=== PATIENT | female | born 1970 | race Caucasian/White ===

== ENCOUNTER 2016-10-15 17:52 | Emergency (ER) | payer MEDICAID ==
[~2016-10-15] VITALS: Wt 75.0 kg
[2016-10-15] MEDS ORDERED: HYDROCODONE/APAP (5/325) TAB PO ONE (18:30)
--- NOTE | 2016-10-15 18:32 | ERA ---
ER Documentation Chief Complaint Date/Time DATE: 10/15/16 TIME: 18:28 Chief Complaint l. knee pain, denies trauma HPI 36-year-old female presented with a chief complaint of 2 months of left knee and ankle pain that is described as burning and worse with movement. Patient has no other symptoms and describes no other associated manifestations. ROS All systems reviewed and are negative except as per history of present illness. Medications Home Meds Active Scripts Ibuprofen* (Motrin*) 600 Mg Tab, 600 MG PO Q6, #30 TAB Prov:NIC RUIZ PA-C 10/15/16 Hydrocodone/Acetaminophen ([place] 5-325 Tablet) 1 Each Tablet, 1 TAB PO Q6H Y for PAIN, #7 TAB Prov:NIC RUIZ PA-C 10/15/16 Discontinued Scripts Ibuprofen* (Motrin*) 600 Mg Tab, 600 MG PO Q6H Y for PAIN AND OR ELEVATED TEMP, #30 TAB Prov:FRANCIS MAURICIO PA-C 10/15/16 Allergies Allergies: Coded Allergies: No Known Drug Allergies (Verified Allergy, Unknown, 12/02/15) PMhx/Soc History of Surgery: No Anesthesia Reaction: No Hx Neurological Disorder: No Hx Respiratory Disorders: No Hx Cardiac Disorders: No Hx Psychiatric Problems: No Hx Miscellaneous Medical Probl: No Hx Alcohol Use: No Hx Substance Use: No Hx Tobacco Use: No Physical Exam Vitals Vital Signs Date Time Temp Pulse Resp B/P Pulse Ox O2 Delivery O2 Flow Rate FiO2 10/15/16 21:18 98.6 80 20 100 Room Air 10/15/16 18:07 98.4 68 20 119/67 98 Physical Exam Const: Overweight 46-year-old female in no acute distress. Head: Atraumatic Eyes: Normal Conjunctiva ENT: Normal External Ears, Nose and Mouth. Neck: Full range of motion..~ No meningismus. Resp: Clear to auscultation bilaterally Cardio: Regular rate and rhythm, no murmurs Abd: Soft, non tender, non distended. Normal bowel sounds Skin: No petechiae or rashes. No bruising seen in the affected extremity. Back: No midline or flank tenderness Ext: Limited range of motion of the left knee and left ankle secondary to pain. Minimal tenderness to palpation. No cyanosis, or edema Neur: Awake and alert Psych: Normal Mood and Affect Results 24 hrs Current Medications Medications (Trade) Dose Ordered Sig/Waldo Route PRN Reason Start Time Stop Time Status Last Admin Dose Admin Acetaminophen/ Hydrocodone Bitart ([place] (5/325)) 1 tab ONCE ONCE PO 10/15/16 18:30 10/15/16 18:31 DC 10/15/16 19:20 Procedures/MDM This is a 46-year-old otherwise healthy female presenting with a chief complaint of left knee and left ankle pain as described in the history and physical examination. Patient was given [place] in the ED with moderate symptomatic relief. Radiographs of the affected areas were taken and read by the radiologist given the following impression: No acute fracture of the ankle. No acute fracture of the knee. At this time I very little suspicion for neurovascular involvement. There are no breaks in the skin level suspicion for infectious involvement. Patient will be discharged with pain control instructions. Patient has verbally acknowledged that she understands and has agreed to the plan of management. Handout of quality assurance specialist have been added to her. Patient's vitals are stable her current condition is appropriate for discharge. Patient will be discharged with discharge instructions and return precautions. Departure Diagnosis: Primary Impression: Knee injury Qualified Code: S89.92XA - Knee injury, left, initial encounter Additional Impression: Knee pain Qualified Code: M25.562 - Acute pain of left knee Condition: Stable Additional Instructions: Follow up with your PCP within the next 1-3 days for a more thorough evaluation and a possible referral to a specialist. If you are unable to see her PCP use the handout given to with the referral list of quality assurance specialist in the area. Return the the emergency department immediately if symptoms worsen or change. If you have any questions regarding medications, ask your pharmacist or us before you leave. If any adverse reactions occur while taking your medications, discontinue the treatment and return to the emergency department immediately. Take your medications as directed, and complete the entire course of treatment. FRANCIS MAURICIO PA-C Oct 15, 2016 18:32
--- NOTE | 2016-10-15 19:28 | RADRPT ---
PROCEDURE: Left knee x-ray CLINICAL INDICATION: Left knee TECHNIQUE: AP, lateral and oblique views of the left knee were obtained. COMPARISON: None FINDINGS: There is normal mineralization. No acute fracture or dislocation is seen. There are no significant degenerative changes. There is no joint effusion. There is no significant soft tissue swelling. IMPRESSION: Normal x-ray of the left knee. RPTAT: [facility] Physician Mindi Date Time Electronically viewed and signed by Physician Mindi on 10/15/2016 19:27 RS/
--- NOTE | 2016-10-15 19:29 | RADRPT ---
PROCEDURE: XR Left Foot. CLINICAL INDICATION: Left foot pain, with reference marker directed toward the medial aspect of the mid first metatarsal. TECHNIQUE: AP, lateral and oblique views of the left foot was obtained. The images were reviewed on a PACS workstation. COMPARISON: None. FINDINGS: The bones of the foot appear intact, with no evidence of fracture, dislocation, or subluxation. Mild joint space narrowing at the first metatarsophalangeal joint. Dorsal osteophyte is seen at the head of the first metatarsal. Plantar calcaneal enthesophyte. The bone mineralization is normal. No significant soft tissue swelling is seen. IMPRESSION: No acute fracture. RPTAT: [facility] Physician Mindi Date Time Electronically viewed and signed by Physician Mindi on 10/15/2016 19:29 RS/
[2016-10-15] MEDS ORDERED: IBUP-1542 PO ×2 (19:43→20:57)
[2016-10-15] MEDS ORDERED: HYDR-906 PO (20:55)
[2016-10-15 21:18] VITALS: PULSE 80; RESP 20; TEMP 98.6
== END 2016-10-15 21:05 | disposition home or self-care (01) ==
LOC: FTE 17:52
DX: S89.92XA Unspecified injury of left lower leg, initial encounter (principal); X58.XXXA Exposure to other specified factors, initial encounter; Y92.9 Unspecified place or not applicable
CPT/HCPCS: 73562; 73630; Z7610

== ENCOUNTER 2017-03-01 10:47 | Emergency (ER) | payer MEDICAID ==
[~2017-03-01] VITALS: Wt 70.4 kg
[~2017-03-01 10:47] MED LIST: HYDR-906 PO; IBUP-1542 PO
[2017-03-01] MEDS ORDERED: PSEU30TA38 PO (12:46)
[2017-03-01] MEDS ORDERED: D-ME473S2 PO (12:46)
[2017-03-01] MEDS ORDERED: FLUT9.9S NASAL (12:46)
[2017-03-01] MEDS ORDERED: BENZ100C70 PO (12:46)
--- NOTE | 2017-03-01 13:13 | ERD ---
ER Documentation Chief Complaint Chief Complaint PRODUCTIVE COUGH, CONGESTION, CHEST WALL PAIN WITH COUGHING HPI 47-year-old female complaining of cough with congestion and sore throat 1 week. Patient denies any fevers. She took Tylenol last night. Has not taken any other medications. Denies medical problems. NKDA. Surgical history C- section. Social history denies. ROS All systems reviewed and are negative except as per history of present illness. Medications Home Meds Active Scripts Pseudoephedrine Hcl* (Pseudoephedrine Hcl*) 30 Mg Tablet, 30 MG PO Q6 Y for CONGESTION, #30 TAB Prov:AMY HONG PA-C 03/01/17 Fluticasone Propionate (Flonase Allergy Relief) 9.9 Ml [place].susp, 1 SPRAY NASAL BID, #1 BOTTLE TO EACH NOSTRIL Prov:AMY HONG PA-C 03/01/17 Dextromethorphan Hb-Promethazine Hcl* (Promethazine DM* Syrup) 473 Ml Syrup, 5 ML PO Q6 Y for COUGH, #100 ML Prov:AMY HONG PA-C 03/01/17 Benzonatate* (Tessalon Perle*) 100 Mg Capsule, 100 MG PO Q8H Y for COUGH, #30 CAP Prov:AMY HONG PA-C 03/01/17 Ibuprofen* (Motrin*) 600 Mg Tab, 600 MG PO Q6, #30 TAB Prov:NIC RUIZ PA-C 10/15/16 Hydrocodone/Acetaminophen ([place] 5-325 Tablet) 1 Each Tablet, 1 TAB PO Q6H Y for PAIN, #7 TAB Prov:NIC RUIZ PA-C 10/15/16 Allergies Allergies: Coded Allergies: No Known Drug Allergies (Verified Allergy, Unknown, 12/02/15) PMhx/Soc Medical and Surgical Hx: pt denies Medical Hx, pt denies Surgical Hx History of Surgery: No Anesthesia Reaction: No Hx Neurological Disorder: No Hx Respiratory Disorders: No Hx Cardiac Disorders: No Hx Psychiatric Problems: No Hx Miscellaneous Medical Probl: No Hx Alcohol Use: No Hx Substance Use: No Hx Tobacco Use: No Smoking Status: Never smoker Physical Exam Vitals Vital Signs Date Time Temp Pulse Resp B/P Pulse Ox O2 Delivery O2 Flow Rate FiO2 03/01/17 10:50 97.8 73 17 129/76 100 Physical Exam GENERAL: The patient is well-appearing, well-nourished, in no acute distress HEENT: Atraumatic. Conjunctivae are pink. Pupils equal, round, and reactive to light. There is no scleral icterus. Tympanic membranes clear bilaterally. Oropharynx clear. No nystagmus or photophobia. NECK: C-spine is soft and supple. There is no meningismus. There is no cervical lymphadenopathy. CHEST: Clear to auscultation bilaterally. There are no rales, wheezes or rhonchi. HEART: Regular rate and rhythm. No murmurs, clicks, rubs or gallops. No S3 or S4. Procedures/MDM MDM: 37-year-old female complaining of URI symptoms. I have low suspicion for pneumonia as patient's breath sounds are within normal limits. I have low suspicion for axial HEENT infection. Patient's exam is non-concerning. I have low suspicion for meningitis or sepsis. Patient's vital signs are stable and exam is non-concerning. Patient likely has viral cough and will be treated with symptomatic medications. I do not feel that antibiotics are indicated. Patient is discharged with strict ER precautions and recommended to follow-up with primary care within 1-2 days for close evaluation. All questions answered at discharge Departure Diagnosis: Primary Impression: Upper respiratory infection Condition: Stable Patient Instructions: Uri, Viral, No Abx (Adult) Referrals: [facility] YOU HAVE RECEIVED A MEDICAL SCREENING EXAM AND THE RESULTS INDICATE THAT YOU DO NOT HAVE A CONDITION THAT REQUIRES URGENT TREATMENT IN THE EMERGENCY DEPARTMENT. FURTHER EVALUATION AND TREATMENT OF YOUR CONDITION CAN WAIT UNTIL YOU ARE SEEN IN YOUR DOCTORS OFFICE WITHIN THE NEXT 1-2 DAYS. IT IS YOUR RESPONSIBILITY TO MAKE AN APPOINTMENT FOR FOL-UP CARE. IF YOU HAVE A PRIMARY DOCTOR --you should call your primary doctor and schedule an appointment IF YOU DO NOT HAVE A PRIMARY DOCTOR YOU CAN CALL OUR PHYSICIAN REFERRAL HOTLINE AT IF YOU CAN NOT AFFORD TO SEE A PHYSICIAN YOU CAN CHOSE FROM THE FOLLOWING [facility] [address] [facility]. [facility] [address] [facility] [facility] [address] [facility] [facility] [address] [facility]. [facility] [address] [facility]. [facility] [address] Additional Instructions: FOLLOW UP WITH YOUR PRIMARY CARE PHYSICIAN TOMORROW.Return to this facility if you are not improving as expected. AMY HONG PA-C Mar 01, 2017 13:13
== END 2017-03-01 12:52 | disposition home or self-care (01) ==
LOC: FTE 10:47
DX: J06.9 Acute upper respiratory infection, unspecified (principal)
CPT/HCPCS: 99284

== ENCOUNTER 2018-03-09 12:34 | Emergency (ER) | END 2018-03-09 14:35 | disposition home or self-care (01) ==